=== PATIENT | male | born 1945 | race Caucasian/White ===

== ENCOUNTER → 2016-08-10 | Outpatient (CLI) | payer OTHER, MEDICARE ==
[~2016-08-10] VITALS: Ht 190.5 cm; Wt 138.4 kg
[~2016-08-10] MED LIST: ALIGN4 MG PO; ALLERGY10 M2 PO; ALPRAZOLAM 0.0.25 M1 PO; ALTACE5 M1 PO; ASPIRIN EC81 M1 PO; ASTELIN30 ML NS; ATENOLOL 25 MG25 M1 PO; AVODART PO; AVODART0.5 MG PO; CARAFATE 11 GM/10 M1 PO; CARAFATE1 GM/10 ML; CARAFATE1 GM/10 ML PO; COUMADIN 5 MG TA5 M1 PO; COUMADIN PO; COUMADIN7.5 MG PO; CRESTOR10 MG PO; DOMPERIDONE PO; E-MYCIN250 MG PO; EFFEXOR XR150 MG PO; ERYTHROMYCIN250 M1 PO; ERYTHROMYCIN250 MG PO; FLAGYL500 MG PO; FLONASE 0.05%50 MCG NASAL; FLONASE NS; FUROSEMIDE 20 M20 M1 PO; FUROSEMIDE 40 M40 MG PO; FUROSEMIDE 80 M80 M1 PO; JANTOVEN5 MG PO; KRILL OIL500 MG PO; LACTAID FAS9000 UNI1 PO; LACTASE 3000U T1 TA1 PO; LANOXIN 0.120.125 M1 PO; LEVEMIR SUBQ; LIDOCAINE VISC100 ML MM; LIPITOR20 MG PO; LOVENOX PO; MAALOX MAXIMUM355 ML PO; METRONIDAZOLE500 M4 PO; MIRALAX17 GM PO; NABUMETONE 750750 M1 PO; NEURONTIN300 MG PO; NOVOLOG100 UNIT/1; NOVOLOG100 UNIT/1 SUBQ; OMEGA-3 KRILL1 EACH PO; OMEPRAZOLE40 MG PO; ONDANSETRON HCL4 M2 PO; ONDANSETRON HCL4 M3 PO; POTASSIUM99 M1 PO; PRILOSEC 20 MG20 MG PO; PROBIOTIC1 EAC1 PO; PROBIOTIC1 EACH PO; STOOL SOFTENER250 MG PO; TOPROL XL100 MG PO; TRILIPIX135 MG PO; VICODIN 5-5001 EACH PO; VITAMIN D31000 UNI2 PO; XANAX 0.25 MG0.25 MG PO; XARELTO20 MG PO; XIFAXAN550 MG PO; ZANAFLEX4 M1 PO
--- NOTE | ~2016-08-10 | HPC ---
[facility] [place] [address] PAIN MANAGEMENT CONSULTATION Name: CARINECLARICE Eusebio Room #: REG [facility] [id number] Admission: 08/10/16 Attend Phys: Rudy Fontaine DO Discharge: Date of : 43 Report #: [id number] THIS REPORT FOR: //name// CC: Rudy Marrufo MD DATE OF SERVICE: 08/10/2016 Referring physician: William Marrufo MD CHIEF COMPLAINT: Low back pain, right lower extremity pain and paresthesias. HISTORY OF PRESENT ILLNESS: As you know, the patient is a 70-year-old male, returning in followup visit having discontinued his Coumadin therapy in preparation for the next in a series of epidural injections under fluoroscopic guidance. As you are aware, the patient suffers from chronic lumbar radiculopathy secondary to progressively worsening spinal stenosis. His spinal stenosis is multifactorial due to facet changes and disk bulging leading to central canal stenosis. He has returned today in preparation for an epidural injection under fluoroscopic guidance. He is placing his pain score today at 5/10, states pain is exacerbated with standing, walking, lifting, bending, improves with sitting and lying down. He indicates a 90% improvement in overall pain with previous epidural injection lasting nearly 3-1/2 months. He returns today in followup visit with an INR of 1.0 in preparation for today's procedure. ALLERGIES: No known drug allergies. CURRENT MEDICATIONS: See extensive list in chart. PHYSICAL EXAMINATION: VITAL SIGNS: Blood pressure 121/57, pulse 60, respiratory rate 20, unlabored. The patient is 96% on room air, height 6 feet 3 inches tall, weight 305.2 pounds, BMI calculated 38.1. GENERAL: Well developed, well nourished, well hydrated, morbidly obese 70-year-old male appearing stated age. He is placing pain score today 5/10. HEENT: Normocephalic, atraumatic. Pupils equal, round, reactive to light. EXTREMITIES: Show no clubbing, no cyanosis. There is 2+ nonpitting lower extremity venous stasis. MUSCULOSKELETAL: Seated straight leg raising negative. Supine straight leg raising mildly positive. KALEIGH test negative. Modified Gaenslen's positive for axial low back pain. Ankle clonus negative. Babinski is negative. ASSESSMENT: 1. Chronic lumbar radiculopathy. 2. Progressively worsening spinal stenosis of lumbar spine. [address] [address] PAIN MANAGEMENT CONSULTATION Name: CLARICE HAWK Eusebio [facility] [id number] Admission: 08/10/16 Attend Phys: Rudy Fontaine DO Discharge: Date of : 43 Report #: [id number] 3. Displacement of lumbar intervertebral disk with radiculopathy. 4. Lumbosacral spondylosis with radiculopathy. 5. Lumbar degeneration. 6. Chronic intractable pain. PLAN: 1. The patient returns today in followup visit having an INR of 1.0 after discontinuing his Coumadin therapy in preparation for an epidural injection under fluoroscopic guidance. The patient has been advised of the risks and benefits of this procedure, states he understood and wished to proceed. The patient does indicate that his previous epidural injection provided 90% improvement in overall pain lasting for nearly 3-1/2 months. He is hopeful to see similar improvement today. He has been advised risks and benefits, states he understood and did sign consent to undergo the procedure. 2. No medication changes were made at today's visit. The patient will restart his Coumadin starting today and then continue his normal dosing as prescribed by his PCP. 3. We will see the patient back in followup visit on an as needed basis. PROCEDURE NOTE: DESCRIPTION OF PROCEDURE: L4-L5 lumbar epidural steroid injection under fluoroscopic guidance. After obtaining written consent, the patient was taken back to fluoroscopy suite, placed in prone position with pillow under abdomen to decrease lumbar lordosis. Skin overlying lumbosacral area prepped and draped in aseptic fashion. The L4-L5 vertebral interspace identified by AP fluoroscopy. Skin and subcutaneous tissue overlying target site of injection was anesthetized with 3 mL of 1% lidocaine. A 20-gauge 4-1/2 inch Tuohy needle advanced under fluoroscopic guidance towards the epidural space using a right paramedian approach. Epidural space identified using loss of resistance to air technique. After negative aspiration for heme or cerebrospinal fluid, 1 mL of Omnipaque was injected. A lumbar epidurogram was confirmed using both AP and lateral fluoroscopy. After negative aspiration for heme or cerebrospinal fluid, 5 mL of a solution containing 2 mL 40 mg per mL, 80 mg total triamcinolone, 3 mL lidocaine 1% injected slowly. Needle retracted chcf, needle tract flushed 3 mL 1% lidocaine. Needle then removed. Sterile bandage placed over injection site. No new motor deficits present in the lower extremity following the procedure. The patient tolerated procedure well, carefully escorted to the recovery room in [facility] [address] [place] [address] PAIN MANAGEMENT CONSULTATION Name: CLARICE HAWK Room #: REG [facility] Jody#: [id number] Admission: 08/10/16 Attend Phys: Rudy Fontaine DO Discharge: Date of : 43 Report #: [id number] stable condition. No apparent complication. After meeting discharge criteria, the patient discharged home. By: [id number] Rudy Fontaine DO /nt
[2016-08-10 10:10] VITALS: BP 121/57
== END | disposition home or self-care (01) ==
LOC: PAIN 07:04
DX: M54.16 Radiculopathy, lumbar region (principal); M48.06 Spinal stenosis, lumbar region; M51.26 Other intervertebral disc displacement, lumbar region; M47.27 Other spondylosis with radiculopathy, lumbosacral region; M51.36 Other intervertebral disc degeneration, lumbar region; G89.29 Other chronic pain

== ENCOUNTER → 2016-10-12 | Outpatient (CLI) | payer OTHER, MEDICARE ==
[~2016-10-12] VITALS: Ht 190.5 cm; Wt 139.5 kg
--- NOTE | ~2016-10-12 | HPC ---
[facility] [address] [place] [address] PAIN MANAGEMENT CONSULTATION Name: CARINECLARICE Eusebio Room #: REG JAY Jody#: [id number] Admission: 10/12/16 Attend Phys: Rudy Fontaine DO Discharge: Date of : 43 Report #: [id number] THIS REPORT FOR: //name// CC: Dr. Casper Marrufo DATE OF SERVICE: 10/12/2016 REFERRING PHYSICIAN: DR. Shirley. CHIEF COMPLAINT: Low back and right lower extremity pain with paresthesias. HISTORY OF PRESENT ILLNESS: As you know, the patient is a 70-year-old male who has returned today in followup visit to undergo next in the series of epidural injections under fluoroscopic guidance. The patient has done very well with previous epidural injections, returning today with a pain level of 6/10, states his pain is aching and sharp in sensation, exacerbated with standing, walking, bending, lifting, improves with sitting, lying down and medications as well as epidural injections. His previous epidural injection provided 80% improvement in overall pain for nearly 2 months. He has discontinued his Coumadin in preparation for today's procedure, his INR today 1.0. He returns for this epidural injection in hopes of improving pain. ALLERGIES: No known drug allergies. CURRENT MEDICATIONS: See extensive list in chart. IMAGING: No new imaging available. PHYSICAL EXAMINATION: VITAL SIGNS: Blood pressure 127/75, pulse 72, respiratory rate 16 and unlabored, the patient is 93% on room air, height 6 feet 3 inches tall, weight 307 pounds, and BMI calculated 38.4. GENERAL: Well-developed, well-nourished, well-hydrated, exogenously obese 70-year-old male, appearing his stated age, he is placing current pain score at 6/10. HEENT: Normocephalic, atraumatic. Pupils are equal, round, and reactive to light. Extraocular muscles are intact. EXTREMITIES: Show no clubbing, no cyanosis, and no edema. There is venous stasis noted in the lower extremities bilaterally. MUSCULOSKELETAL: Seated straight leg raising negative. Supine straight leg raising remains mildly positive on the right. Fabere's test negative. Gait is antalgic favoring right lower extremity over left. He is using a cane for ambulation. [address] [address] PAIN MANAGEMENT CONSULTATION Name: CLARICE HAWK Eusebio Room #: [facility] [id number] Admission: 10/12/16 Attend Phys: Rudy Fontaine DO Discharge: Date of : 43 Report #: [id number] ASSESSMENT: 1. Symptomatic lumbar radiculopathy. 2. Progressively worsening spinal stenosis of the lumbar spine. 3. Displacement of lumbar intervertebral disk with radiculopathy. 4. Lumbosacral spondylosis with radiculopathy. 5. Lumbar degeneration. 6. Chronic intractable pain. PLAN: 1. The patient returns today in followup visit requesting to undergo epidural injection under fluoroscopic guidance. The patient has noted good benefit with previous epidural injections, most recent provided 80% improvement in overall pain lasting for nearly 2 months. He returns today requesting to undergo this epidural injection. He has discontinued his Coumadin in preparation for procedure, his INR today 1.0. He has been advised risks and benefits of this procedure, states he understood and did wish to proceed. 2. No medication changes were made at today's visit. The patient will restart his Coumadin today. He will continue the Coumadin as directed. 3. We will see the patient back in followup visit on an as needed basis for possible repeat epidural injection. PROCEDURE NOTE DESCRIPTION OF PROCEDURE: Lumbar epidural steroid injection under fluoroscopic guidance. After obtaining written consent, the patient was taken back to fluoroscopy suite, placed in prone position with pillow under abdomen to decrease lumbar lordosis. Skin overlying lumbosacral area was prepped and draped in aseptic fashion. Lumbar intervertebral spaces were identified by AP fluoroscopy. Skin and subcutaneous tissue overlying target site of injection was anesthetized with 3 mL of 1% lidocaine. A 20-gauge 3-1/2 inch Tuohy needle was advanced under fluoroscopic guidance towards the epidural space using a right paramedian approach. Epidural space was identified using loss of resistance to air technique. After negative aspiration for heme or cerebrospinal fluid, 1 mL of Omnipaque was injected. Lumbar epidurogram was confirmed using both AP and lateral fluoroscopy. After negative aspiration for heme or cerebrospinal fluid, 5 mL of a solution containing 2 mL 40 mg per mL, 80 mg total triamcinolone, 3 mL lidocaine 1% injected slowly. Needle retracted jail, needle tract flushed with 3 mL 1% lidocaine. Needle then removed. Sterile bandage placed over injection site. No new motor deficits present in the lower extremity following the procedure. The patient tolerated the procedure well, carefully escorted to the recovery [facility] [address] [place] [address] PAIN MANAGEMENT CONSULTATION Name: CLARICE HAWK Room #: REG JAY Jody#: [id number] Admission: 10/12/16 Attend Phys: Rudy Fontaine DO Discharge: Date of : 43 Report #: [id number] room in stable condition. No apparent complications. After meeting discharge criteria, the patient discharged home. By: [id number] Rudy Fontaine DO /nt
[2016-10-12 08:36] VITALS: BP 127/75
== END | disposition home or self-care (01) ==
LOC: PAIN 10-11 06:51
DX: M54.16 Radiculopathy, lumbar region (principal); M48.06 Spinal stenosis, lumbar region; M51.16 Intervertebral disc disorders with radiculopathy, lumbar region; M47.27 Other spondylosis with radiculopathy, lumbosacral region; G89.29 Other chronic pain; Z87.891 Personal history of nicotine dependence

== ENCOUNTER → 2016-12-06 | Outpatient (CLI) | payer OTHER, MEDICARE | LOC: ULTRA 12-05 08:45 | DX: G57.62 Lesion of plantar nerve, left lower limb (principal) ==

== ENCOUNTER → 2016-12-21 | Outpatient (CLI) | payer OTHER, MEDICARE ==
[~2016-12-21] VITALS: Ht 190.5 cm; Wt 142.1 kg
--- NOTE | ~2016-12-21 | HPC ---
[facility] [address] [place] [address] PAIN MANAGEMENT CONSULTATION Name: CLARICE HAWK Room #: REG [facility]#: [id number] Admission: 12/21/16 Attend Phys: Rudy Fontaine DO Discharge: Date of : 43 Report #: [id number] THIS REPORT FOR: //name// CC: Rudy Shirley MD DATE OF SERVICE: 12/21/2016 BLACREFERRING PHYSICIAN: Dr. Shirley. CHIEF COMPLAINT: Low back pain, right lower extremity pain and paresthesias. HISTORY OF PRESENT ILLNESS: As you know, the patient is a 70-year-old male who returns today in followup visit to undergo next in the series of epidural injections under fluoroscopic guidance. The patient is placing pain score 5-6/10, states the pain is exacerbated with standing, walking, bending, lifting, improves with sitting, lying down, medications and epidural injections. He has discontinued his warfarin in preparation for today's procedure. INR today 1.1. He has returned today requesting epidural injection to build on success of previous intervention. He reports 80% improvement in overall pain with previous injection. ALLERGIES: No known drug allergies. CURRENT MEDICATIONS: See extensive list in chart. IMAGING: No new imaging available. PHYSICAL EXAMINATION: VITAL SIGNS: Blood pressure 122/78, pulse 60, respiratory rate 14, unlabored. The patient is 97% on room air. Height 6 feet 3 inches tall, weight 313.2 pounds, BMI calculated 39.1. GENERAL: Well developed, well nourished, well-hydrated exogenously obese 70-year-old male appearing his stated age, placing current pain score at 6/10. HEENT: Normocephalic, atraumatic. Pupils equal, round, reactive to light. Extraocular muscles are intact. Speech is fluent. EXTREMITIES: Show no clubbing, no cyanosis. There is venous stasis in the lower extremities bilaterally, but this is improved from previous evaluations. MUSCULOSKELETAL: Seated straight leg raising negative. Supine straight leg raising positive right. Citlaly's test negative. Modified Gaenslen's positive for axial low back pain. ASSESSMENT: 1. Symptomatic lumbar radiculopathy. [address] [address] PAIN MANAGEMENT CONSULTATION Name: CARINECLARICE Eusebio Room #: REG [facility].#: [id number] Admission: 12/21/16 Attend Phys: Rudy Fontaine DO Discharge: Date of : 43 Report #: [id number] 2. Progressively worsening spinal stenosis of the lumbar spine. 3. Displacement of lumbar intervertebral disk with radiculopathy. 4. Lumbosacral spondylosis with radiculopathy. 5. Lumbar degeneration. 6. Chronic intractable pain. PLAN: 1. The patient returns today in followup visit requesting to undergo next in the series of epidural injections under fluoroscopic guidance. He has discontinued his Coumadin in preparation for today's procedure. His INR is 1.1 today. He has been advised of risks and benefits of the epidural injection, states he understood and wished to proceed. 2. No medication changes were made at today's visit, the patient to continue current medical therapy as previously prescribed. 3. The patient to return to our clinic on an as-needed basis for possible next in a series of epidural injections. PROCEDURE NOTE DESCRIPTION OF PROCEDURE: L4-L5 right paramedian epidural steroid injection under fluoroscopic guidance. After obtaining written consent, the patient was taken back to fluoroscopy suite, placed in prone position with pillow under abdomen to decrease lumbar lordosis. Skin overlying lumbosacral area prepped and draped in aseptic fashion. Lumbar intervertebral spaces were identified by AP fluoroscopy. Skin and subcutaneous tissue overlying target site of injection was anesthetized with 3 mL of 1% lidocaine. A 20-gauge 4-1/2 inch Tuohy needle was advanced under fluoroscopic guidance towards the epidural space using a right paramedian approach. Epidural space identified using loss of resistance to air technique. After negative aspiration for heme or cerebrospinal fluid, 1 mL of Omnipaque was injected. Lumbar epidurogram was confirmed using both AP and lateral fluoroscopy. After negative aspiration for heme or cerebrospinal fluid, 5 mL of a solution containing 2 mL 40 mg per mL, 80 mg total triamcinolone, 3 mL lidocaine 1% injected slowly. Needle retracted usp, needle tract flushed 3 mL 1% lidocaine. Needle then removed. Sterile bandage placed over injection site. No new motor deficits present in the lower extremity following procedure. The patient tolerated procedure well, carefully escorted to the recovery in [address] [address] PAIN MANAGEMENT CONSULTATION Name: CLARICE HAWK Room #: JITENDRA Vera#: [id number] Admission: 12/21/16 Attend Phys: Rudy Fontaine DO Discharge: Date of : 43 Report #: [id number] stable condition. No apparent complications. After meeting discharge criteria, the patient discharged home. By: 1110 1920 Rudy Fontaine DO /macho
[2016-12-21 09:43] VITALS: BP 122/78
== END | disposition home or self-care (01) ==
LOC: PAIN 07:08
DX: M51.16 Intervertebral disc disorders with radiculopathy, lumbar region (principal); M48.06 Spinal stenosis, lumbar region; M47.27 Other spondylosis with radiculopathy, lumbosacral region; G89.29 Other chronic pain; Z87.891 Personal history of nicotine dependence

== ENCOUNTER → 2017-02-15 | Outpatient (CLI) | payer OTHER, MEDICARE ==
[~2017-02-15] VITALS: Ht 190.5 cm; Wt 142.5 kg
[~2017-02-15] MED LIST changes: +FLOMAX0.4 MG PO
--- NOTE | ~2017-02-15 | HPC ---
[facility] [place] [address] PAIN MANAGEMENT CONSULTATION Name: CARINECLARICE Eusebio Room #: [facility] [id number] Admission: 02/15/17 Attend Phys: Rudy Fontaine DO Discharge: Date of : 43 Report #: [id number] THIS REPORT FOR: //name// CC: Rudy Shirley MD DATE OF SERVICE: 02/15/2017 DATE OF SERVICE: 02/15/2017 CHIEF COMPLAINT: Low back pain, right lower extremity pain and paresthesias. HISTORY OF PRESENT ILLNESS: As you know, the patient is a 71-year-old male who has been referred to our service for evaluation for lumbar radicular symptoms. He has undergone epidural injections with good efficacy. Most recent injection provided upwards of 75% improvement in overall pain lasting until just recently where he has slow and progressive return of symptoms, now he is placing pain score at 8/10. He has discontinued his Coumadin with an INR of 1.0 to undergo epidural injection today. He denies any changes in his medical history and denies any injuries or trauma that may have led to progression of pain. ALLERGIES: No known drug allergies. CURRENT MEDICATIONS: See the extensive list in chart. IMAGING: No new imaging available. PHYSICAL EXAMINATION: VITAL SIGNS: Blood pressure 141/69, pulse 64, respiratory rate 18, unlabored. The patient is 95% on room air, height 6 feet 3 inches tall, weight 314.2 pounds, BMI calculated 39.3. GENERAL: Well-developed, well-nourished, well-hydrated, class 2, morbidly obese 71-year-old male appearing stated age, placing current pain score at 8/10. HEENT: Normocephalic, atraumatic. Pupils equal, round, reactive to light. EXTREMITIES: Show no clubbing, no cyanosis, no edema. MUSCULOSKELETAL: Seated straight leg raising negative. Supine straight leg raising positive right. KALEIGH test negative. Modified Gaenslen's positive for axial low back pain. There is noted venous stasis in the lower extremities bilaterally. ASSESSMENT: 1. Symptomatic lumbar radiculopathy. 2. Progressively worsening spinal stenosis of the lumbar spine. 3. Displacement of lumbar intervertebral disk with radiculopathy. 4. Lumbosacral spondylosis with radiculopathy. [address] [address] PAIN MANAGEMENT CONSULTATION Name: CLARICE HAWK Room #: REG JAY Vera#: [id number] Admission: 02/15/17 Attend Phys: Rudy Fontaine DO Discharge: Date of : 43 Report #: [id number] 5. Lumbar degeneration. 6. Chronic intractable pain. PLAN: 1. The patient returns today in followup visit requesting to undergo epidural injection under fluoroscopic guidance. His INR today is 1.0. He has discontinued his Coumadin in preparation for today's procedure. The patient was advised risks and benefits of the procedure, states he understood and wished to proceed. 2. The patient is to continue current medical therapy as previously prescribed. No changes in medical therapy provided today. 3. The patient will restart his Coumadin today and continue on Coumadin until our next visit. He is to follow his INR and adjust his medication appropriately. PROCEDURE NOTE PROCEDURE: L5-S1 paramedian epidural steroid injection under fluoroscopic guidance. DESCRIPTION OF PROCEDURE: After obtaining written consent, the patient was taken back to fluoroscopy suite, placed in prone position with pillow under abdomen to decrease lumbar lordosis. Skin overlying lumbosacral area prepped and draped in aseptic fashion. Lumbar intervertebral spaces were identified by AP fluoroscopy. Skin and subcutaneous tissue overlying the target site of injection was anesthetized with 3 mL of 1% lidocaine. A 20-gauge 4-1/2 inch Tuohy needle advanced under fluoroscopic guidance towards the epidural space using paramedian approach. Epidural space identified using loss of resistance to air technique. After negative aspiration for heme or cerebrospinal fluid, 1 mL of Omnipaque was injected. A lumbar epidurogram was confirmed using both AP and lateral fluoroscopy. After negative aspiration for heme or cerebrospinal fluid, 5 mL of a solution containing 2 mL 40 mg per mL, 80 mg total triamcinolone, 3 mL lidocaine 1% injected slowly. Needle retracted senior care, needle tract flushed with 3 mL 1% lidocaine. Needle then removed. Sterile bandage placed over injection site. No new motor deficits present in lower extremity following the procedure. The patient tolerated procedure well, carefully escorted to the recovery in stable condition. No apparent complication. After meeting discharge criteria, the patient discharged home. By: [id number] Rudy Fontaine DO /nt
[2017-02-15 09:47] VITALS: BP 141/69
== END | disposition home or self-care (01) ==
LOC: PAIN 07:06
DX: M51.16 Intervertebral disc disorders with radiculopathy, lumbar region (principal); M48.061 Spinal stenosis, lumbar region without neurogenic claudication; M47.27 Other spondylosis with radiculopathy, lumbosacral region; G89.29 Other chronic pain; Z98.890 Other specified postprocedural states; Z79.01 Long term (current) use of anticoagulants; Z87.891 Personal history of nicotine dependence; Z95.810 Presence of automatic (implantable) cardiac defibrillator; Z79.82 Long term (current) use of aspirin; Z79.899 Other long term (current) drug therapy; Z79.4 Long term (current) use of insulin

== ENCOUNTER → 2017-07-18 | Outpatient (CLI) | payer OTHER, MEDICARE ==
[~2017-07-18] VITALS: Ht 195.6 cm; Wt 143.7 kg
[~2017-07-18] MED LIST changes: -ATENOLOL 25 MG25 M1 PO; +ATIVAN0.5 MG PO; +DEMADEX20 MG PO; -FUROSEMIDE 20 M20 M1 PO; +LASIX 40 MG TAB40 M2 PO; +SPIRONOLACTONE25 M1 PO; +TENORMIN50 MG PO; -XANAX 0.25 MG0.25 MG PO
--- NOTE | ~2017-07-18 | HPC ---
[facility] [place] [address] PAIN MANAGEMENT CONSULTATION Name: CLARICE HAWK Eusebio Room #: REG JAY HobbsYayo#: [id number] Admission: 07/18/17 Attend Phys: Rudy Fontaine DO Discharge: Date of : 43 Report #: [id number] THIS REPORT FOR: //name// CC: Rudy Shirley MD DATE OF SERVICE: 07/18/2017 CHIEF COMPLAINT: Low back pain, right lower extremity pain with paresthesias. HISTORY OF PRESENT ILLNESS: As you know, the patient is a 71-year-old male who returns today in followup visit with recurrent lumbar radiculopathy. The patient is now placing pain score at around 7/10. The patient states that pain is exacerbated with standing, walking; improves with medication, sitting and epidural injections. He reports an 80% improvement in overall pain with previous epidural injection. He returns today in followup visit requesting next in the series in hopes of improving pain. He has an INR today of 1.0 as he has discontinued his Coumadin. ALLERGIES: No known drug allergies. CURRENT MEDICATIONS: See extensive list in chart. IMAGING: No new imaging available. PQRS: The patient has known osteoarthritis. No rheumatoid arthritis. He indicates pain level 7/10. He is a fall risk. He has not had a fall in the past 3 months, but he does use a cane for ambulation. He is on anticoagulation in the form of warfarin, which was discontinued in preparation for today's procedure. He has treated for hypertension. He is not on chronic opioids. He is a moderate risk for opioid abuse. His functional assessment tool, 47/70 indicating severe interference of daily activities secondary to pain. PHYSICAL EXAMINATION: VITAL SIGNS: Blood pressure 108/63, pulse 68, respiratory rate 16, nonlabored. The patient is 96% on room air, height 6 feet 5 inches tall, weight 316.8 pounds, BMI calculated 37.6. GENERAL: Well-developed, well-nourished, well-hydrated exogenously obese 71-year-old male appearing stated age, placing current pain score 7/10. HEENT: Normocephalic, atraumatic. Pupils equal, round, reactive to light. Extraocular muscles are intact. Speech fluent. The patient deemed a good historian. EXTREMITIES: Show no clubbing, no cyanosis, no edema. MUSCULOSKELETAL: Seated straight leg raising negative. Supine straight leg [facility] [address] [place] [address] PAIN MANAGEMENT CONSULTATION Name: CLARICE HAWK Room #: REG [facility]#: [id number] Admission: 07/18/17 Attend Phys: Rudy Fontaine DO Discharge: Date of : 43 Report #: [id number] raising positive right. KALEIGH test negative. Modified Gaenslen's positive for axial low back pain. Ankle clonus negative. Babinski is negative. Noted venous stasis in lower extremities bilaterally, right greater than left. ASSESSMENT: 1. Symptomatic lumbar radiculopathy. 2. Spinal stenosis of lumbar spine. 3. Displacement of lumbar intervertebral disk with radiculopathy. 4. Lumbosacral spondylosis with radiculopathy. 5. Lumbar degeneration. 6. Chronic intractable pain. PLAN: 1. The patient returns today in followup visit requesting to undergo next in the series of epidural injections. He reports an 80% improvement in overall pain with previous epidural injection and unfortunately, he has had a slow and progressive return of symptoms. He is now placing pain score 7/10. He has been advised risks and benefits of a repeat epidural injection, states understood and wished to proceed. 2. No medication changes were made at today's visit. The patient to continue current medical therapy as previously prescribed. 3. We will see the patient back in followup visit on an as-needed basis for the next in a series of epidural injections. The patient is to restart his Coumadin tonight. Continue the Coumadin as directed. DESCRIPTION OF PROCEDURE: L5-S1 right paramedian epidural steroid injection under fluoroscopic guidance. After obtaining written consent, the patient was taken back to fluoroscopy suite, placed in prone position with pillow under abdomen to decrease lumbar lordosis. Skin overlying lumbosacral area then prepped and draped in aseptic fashion. Lumbar intervertebral spaces were identified by AP fluoroscopy. Skin and subcutaneous tissue overlying target site of injection was anesthetized with 3 mL of 1% lidocaine. A 20-gauge 4-inch Tuohy needle was advanced under fluoroscopic guidance towards the epidural space using a right paramedian approach. Epidural space identified using loss of resistance to air technique. After negative aspiration for heme or cerebrospinal fluid, 1 mL of Omnipaque was injected. A lumbar epidurogram was confirmed using both AP and lateral fluoroscopy. After negative aspiration for heme or cerebrospinal fluid, 5 mL of solution containing 2 mL 40 mg per mL, 80 mg total triamcinolone, 3 mL of lidocaine 1% injected slowly. Needle retracted long-term, flushed with 1 mL of 1% lidocaine and removed. Sterile bandage placed over injection site. No new motor deficits present in the lower extremity following procedure. [address] [address] PAIN MANAGEMENT CONSULTATION Name: CLARICE HAWK Room #: REG CLI RadhaKarey#: [id number] Admission: 07/18/17 Attend Phys: Rudy Fontaine DO Discharge: Date of : 43 Report #: [id number] The patient tolerated procedure well, carefully escorted to recovery room in stable condition. No apparent complications. After meeting discharge criteria, the patient discharged home. <ELECTRONICALLY SIGNED> By: Rudy Fontaine DO 07/26/17 0736 1547 1803 Rudy Fontaine DO /nt
[2017-07-18 09:16] VITALS: BP 108/63
== END | disposition home or self-care (01) ==
LOC: PAIN 06-20 08:42
DX: M51.16 Intervertebral disc disorders with radiculopathy, lumbar region (principal); M47.27 Other spondylosis with radiculopathy, lumbosacral region; M48.061 Spinal stenosis, lumbar region without neurogenic claudication; G89.29 Other chronic pain; Z79.01 Long term (current) use of anticoagulants

== ENCOUNTER → 2017-09-06 | Outpatient (CLI) | payer OTHER, MEDICARE ==
[~2017-09-06] VITALS: Ht 195.6 cm; Wt 143.6 kg
[~2017-09-06] MED LIST changes: +ATENOLOL 25 MG25 M1 PO; -ATIVAN0.5 MG PO; -DEMADEX20 MG PO; +FUROSEMIDE 20 M20 M1 PO; -LASIX 40 MG TAB40 M2 PO; -SPIRONOLACTONE25 M1 PO; -TENORMIN50 MG PO; +XANAX 0.25 MG0.25 MG PO
--- NOTE | ~2017-09-06 | HPC ---
[facility] [place] [address] PAIN MANAGEMENT CONSULTATION Name: CLARICE HAWK Eusebio Room #: REG [facility] Radha.#: [id number] Admission: 09/06/17 Attend Phys: Rudy Fontaine DO Discharge: Date of : 43 Report #: [id number] THIS REPORT FOR: //name// CC: Rudy Shirley MD DATE OF SERVICE: 09/06/2017 REFERRING PHYSICIAN: William Marrufo MD. CHIEF COMPLAINT: Low back pain, right lower extremity pain with paresthesias. HISTORY OF PRESENT ILLNESS: As you know, the patient is a pleasant, morbidly obese, 71-year-old male who returns today in followup visit for epidural injection. He is placing his pain score today 7/10. He reports improvement in symptoms with the epidural injection at last visit, but he did note more rapid return of symptoms. This is very concerning for progression of the patient's ongoing back issues. I am concerned of progressively worsening spinal stenosis as the source of the symptoms the patient is experiencing. He has returned requesting this epidural injection in hopes of improving pain. If this does not provide good long-term benefit, I would recommend further imaging and possible surgical consultation. The patient and I discussed this today. We will undergo the epidural injection in hopes of improving symptoms, but again if this is not effective, he is to discuss with his PCP or our clinic about further imaging studies. ALLERGIES: No known drug allergies. CURRENT MEDICATIONS: See extensive list in chart. IMAGING: No new imaging available. PQRS: The patient has known osteoarthritis. No rheumatoid arthritis. He is placing pain score at level of 7/10. He is a fall risk. He has not had a fall in the last 3 months, but he does have unsteady gait and uses a cane for ambulation. He is on anticoagulation in the form of warfarin, discontinued for today's procedure. He is treated for hypertension. He is not on chronic opioids. He is moderate risk for opioid abuse. Functional assessment tool indicates pain 47/70, indicating severe interference of daily activities secondary to pain. LABORATORY DATA: INR 1.0. PHYSICAL EXAMINATION: [facility] [address] [place] [address] PAIN MANAGEMENT CONSULTATION Name: CLARICE HAWK Room #: [facility]#: [id number] Admission: 09/06/17 Attend Phys: Rudy Fontaine DO Discharge: Date of : 43 Report #: [id number] VITAL SIGNS: Blood pressure 120/65, pulse 62, respiratory rate 16, unlabored. The patient is 97% on room air, height is 6 feet 5 inches tall, weight 316.6 pounds, BMI calculated 37.5. GENERAL: Well-developed, well-nourished, well-hydrated, exogenously obese 71-year-old male, appearing his stated age, placing current pain score 7/10. HEENT: Normocephalic, atraumatic. Pupils equal, round, reactive to light. Extraocular muscles are intact. EXTREMITIES: Show no clubbing, no cyanosis. There is significant right lower extremity edema and venous stasis noted bilaterally. ASSESSMENT: 1. Symptomatic lumbar radiculopathy. 2. Progressively worsening spinal stenosis of lumbar spine. 3. Displacement of lumbar intervertebral disk with radiculopathy. 4. Lumbosacral spondylosis with radiculopathy. 5. Lumbar degeneration. 6. Chronic intractable pain. PLAN: The patient returns today in followup visit requesting to undergo epidural injection under fluoroscopic guidance. He reports less efficacy with previous epidural injection than we have seen in the past. I am always concerned when we see this that the patient's pathology may have progressed. We have reviewed with the patient the imaging from the last 3 epidural injections showing him the fluoroscopic imaging where the position of the needle was nearly exactly the same at each injection. The fact that he is receiving less benefit with shots is quite concerning as patient's weight has not varied and thus I am concerned that there is possibility that the patient's weight in conjunction with age has progressed his spinal stenosis further to the point where epidural injections will be ineffective. I would recommend the patient at least trial one more epidural injection. If he notes no improvement with this injection, then I would recommend the patient move for further imaging and possible surgical option. The patient will discuss this with his PCP. He will also need to gain clearance from his licensing coordinator. 2. The patient was advised risks and benefits of a lumbar epidural injection. These risks include but are not necessarily limited to bleeding, bruising, infection, worsening pain, no relief of pain, also risk of temporary or permanent muscle weakness, temporary or permanent nerve damage, possible paralysis and . The patient states understood and wished to proceed. 3. No medication changes made at today's visit. The patient to continue current medical therapy. 4. We will see the patient back in followup visit on an as needed basis for next in a series of epidural injections. PROCEDURE NOTE PROCEDURE: L4-L5 right paramedian epidural steroid injection under fluoroscopic [address] [address] PAIN MANAGEMENT CONSULTATION Name: CLARICE HAWK Room #: REG Dora Garcia#: [id number] Admission: 09/06/17 Attend Phys: Rudy Fontaine DO Discharge: Date of : 43 Report #: [id number] guidance. DESCRIPTION OF PROCEDURE: After obtaining written consent, the patient was taken back to fluoroscopy suite, placed in prone position with pillow under abdomen to decrease lumbar lordosis. Skin overlying lumbosacral area was then prepped and draped in aseptic fashion. The L4-L5 vertebral interspace is identified by AP fluoroscopy. Skin and subcutaneous tissue overlying target site of injection was anesthetized with 3 mL of 1% lidocaine. A 20-gauge 4-1/2 inch Tuohy needle was advanced under fluoroscopic guidance towards the epidural space using a right paramedian approach. Epidural space identified using loss of resistance to air technique. After negative aspiration for heme or cerebrospinal fluid, 1 mL of Omnipaque was injected. Lumbar epidurogram was confirmed using both AP and lateral fluoroscopy. After negative aspiration for heme or cerebrospinal fluid, 5 mL of a solution containing 2 mL 40 mg per mL, 80 mg total triamcinolone, 3 mL lidocaine 1% injected slowly. Needle retracted fdc, flushed with 1 mL of 1% lidocaine and removed. Sterile bandage placed over injection site. No new motor deficits present in the lower extremity following procedure. The patient tolerated the procedure well, carefully escorted to recovery room in stable condition. No apparent complications. After meeting discharge criteria, the patient discharged home. <ELECTRONICALLY SIGNED> By: Rudy Fontaine DO 09/12/17 0811 1137 0020 Rudy Fontaine DO /nt
[2017-09-06 10:51] VITALS: BP 120/65
== END | disposition home or self-care (01) ==
LOC: PAIN 07:36
DX: M51.16 Intervertebral disc disorders with radiculopathy, lumbar region (principal); M48.061 Spinal stenosis, lumbar region without neurogenic claudication; M47.27 Other spondylosis with radiculopathy, lumbosacral region; G89.29 Other chronic pain; I10 Essential (primary) hypertension; Z79.891 Long term (current) use of opiate analgesic; Z79.01 Long term (current) use of anticoagulants; Z98.890 Other specified postprocedural states; Z79.82 Long term (current) use of aspirin; Z79.899 Other long term (current) drug therapy; Z79.4 Long term (current) use of insulin

== ENCOUNTER → 2018-02-21 | Outpatient (CLI) | payer OTHER, MEDICARE ==
[~2018-02-21] VITALS: Ht 195.6 cm; Wt 142.2 kg
[~2018-02-21] MED LIST changes: -ATENOLOL 25 MG25 M1 PO; +ATIVAN0.5 MG PO; +DEMADEX20 MG PO; -FUROSEMIDE 20 M20 M1 PO; +LASIX 40 MG TAB40 M2 PO; +SPIRONOLACTONE25 M1 PO; +TENORMIN50 MG PO; -XANAX 0.25 MG0.25 MG PO
--- NOTE | ~2018-02-21 | HPC ---
[facility] [address] [place] [address] PAIN MANAGEMENT CONSULTATION Name: CLARICE HAWK Room #: [facility] [id number] Admission: 02/21/18 Attend Phys: Rudy Fontaine DO Discharge: Date of : 43 Report #: [id number] THIS REPORT FOR: //name// CC: MICHEAL Saravia MD CHIEF COMPLAINT: Back pain. HISTORY OF PRESENT ILLNESS: As you know, the patient is a morbidly obese 72-year-old male who returns today in followup visit to undergo medial branch nerve blocks of the lumbar spine to determine if his symptoms will improve from axial back pain. The patient sought evaluation through Neurosurgery and advised to trial medial branch nerve blocks and possible radiofrequency lesion to determine if his symptoms will improve. He returns today with an INR of 1.1 to undergo first in the stage procedures of medial branch nerve blocks. ALLERGIES: No known drug allergies. CURRENT MEDICATIONS: See extensive list in chart. IMAGING: There is no new imaging available. PQRS: The patient has bilateral hip pain, bilateral knee pain, low back osteoarthritis. He has no rheumatoid arthritis. He is placing today's pain score at approximately 4/10. He is not a fall risk, but uses a cane for ambulation, has not had a fall in the last 3 months. He is treated with blood thinners in the form of Coumadin. He is treated for hypertension. He has not been on chronic opioids. He is at moderate risk for opioid abuse and addiction. Pain impact score is 47/70, severe. PHYSICAL EXAMINATION: VITAL SIGNS: Blood pressure 127/71, pulse is 65, respiratory rate 18 and unlabored. The patient is 95% on room air, height 6 feet 5 inches tall, weight 320 pounds, BMI calculated 37.9. GENERAL: Well-developed, well-nourished, well-hydrated, morbidly obese 72-year-old male, appears his stated age, placing current pain score 4-5/10. HEENT: Normocephalic, atraumatic. Pupils equal, round, reactive to light. EXTREMITIES: Show no clubbing, no cyanosis. MUSCULOSKELETAL: There is noted venous stasis changes in the lower extremities bilaterally. MUSCULOSKELETAL: Palpatory tenderness noted over the paraspinal musculature of lower lumbar spine, no spinous process tenderness. Seated straight leg raising negative. Supine straight leg raising positive. Citlaly's test negative. Modified Gaenslen's positive for axial low back pain. Ankle clonus negative. [address] [address] PAIN MANAGEMENT CONSULTATION Name: CLARICE HAWK Room #: REG [facility] [id number] Admission: 02/21/18 Attend Phys: Rudy Fontaine DO Discharge: Date of : 43 Report #: [id number] ASSESSMENT: 1. Chronic lumbar radiculopathy. 2. Progressively worsening spinal stenosis of lumbar spine. 3. Displacement of lumbar intervertebral disk with radiculopathy. 4. Facet arthropathy of the lumbar spine. 5. Lumbosacral spondylosis with radicular symptoms. 6. Lumbar degeneration. 7. Chronic intractable pain. PLAN: 1. The patient has returned today in followup visit, discontinued his Coumadin in preparation for medial branch nerve blocks to determine if his symptoms would improve from an axial back pain standpoint. The patient has been consented to undergo medial branch nerve block to address the L3, L4, L5 medial branch nerves in the lumbar spine bilaterally. He has been advised the risks and benefits, states he understood and wished to proceed. The patient will restart his Coumadin at typical dosing. He will discontinue the medication in preparation for next week's medial branch nerve blocks assuming this is an effective first testing. 2. The patient was provided a return visit in 1 week for possible second in the series of medial branch nerve blocks. PROCEDURE NOTE DESCRIPTION OF PROCEDURE: Bilateral L3, L4, L5 medial branch nerve blocks under fluoroscopic guidance. After obtaining written consent, the patient was taken back to fluoroscopy suite, placed in prone position with a pillow under abdomen to decrease lumbar lordosis. Skin overlying the lumbosacral area then prepped and draped in aseptic fashion. The L4 transverse process corresponding to the L3 medial branch nerve and the L5 transverse process corresponding to the L4 medial branch nerve was visualized under fluoroscopic guidance. Skin and subcutaneous tissue overlying the target site of injection was anesthetized with 2 mL of 1% lidocaine. A 22-gauge 3-1/2 inch spinal needle with bent tip was advanced towards the target site of injection under fluoroscopic guidance using a superior, inferior, lateral to medial approach to the dorsal superior and medial aspect of the transverse processes. The needles were then directed caudally to reach the target location. Oblique view facilitated needle placement with properly positioned needles within the middle of the "eye" of the Scottie dog at each site. At each site, needle rested on periosteum. After negative aspiration for heme or cerebrospinal fluid, 1 mL of bupivacaine 0.5% was injected at each site. We injected this slowly to avoid forcing the solution away from the target points. [place] were then removed. L5 dorsal ramus, both on the left and right side was performed using a slightly [facility] [address] [place] [address] PAIN MANAGEMENT CONSULTATION Name: CLARICE HAWK Room #: [facility]#: [id number] Admission: 02/21/18 Attend Phys: Rudy Fontaine DO Discharge: Date of : 43 Report #: [id number] oblique approach under fluoroscopic guidance, placing the needles within the groove between the sacral ala and the superior articular process of S1. Needle rested on periosteum. After negative aspiration for heme, 1 mL of bupivacaine 0.5% was injected at each site. [place] were retracted mcfp, flushed with 1 mL of 1% lidocaine and removed. Sterile bandage placed over injection site. The patient tolerated the procedure well, carefully escorted to Recovery Room in stable condition. No apparent complication. VAS before procedure rated at 4-5/10, VAS 10 minutes after procedure rated at 2/10. <ELECTRONICALLY SIGNED> By: Rudy Fontaine DO 02/28/18 0908 0925 2237 Rudy Fontaine DO /nt
[2018-02-21 10:56] VITALS: BP 182/81
== END | disposition home or self-care (01) ==
LOC: PAIN 07:04
DX: M47.817 Spondylosis without myelopathy or radiculopathy, lumbosacral region (principal); M51.16 Intervertebral disc disorders with radiculopathy, lumbar region; M51.36 Other intervertebral disc degeneration, lumbar region; M48.061 Spinal stenosis, lumbar region without neurogenic claudication; M46.96 Unspecified inflammatory spondylopathy, lumbar region; G89.29 Other chronic pain; M19.90 Unspecified osteoarthritis, unspecified site; I10 Essential (primary) hypertension; F17.210 Nicotine dependence, cigarettes, uncomplicated; Z79.01 Long term (current) use of anticoagulants; Z79.891 Long term (current) use of opiate analgesic; Z79.82 Long term (current) use of aspirin; Z79.899 Other long term (current) drug therapy; Z98.890 Other specified postprocedural states

== ENCOUNTER → 2018-02-28 | Outpatient (CLI) | payer OTHER, MEDICARE ==
[~2018-02-28] VITALS: Ht 190.5 cm; Wt 141.9 kg
--- NOTE | ~2018-02-28 | HPC ---
[address] [address] PAIN MANAGEMENT CONSULTATION Name: CLARICE HAWK [facility] [id number] Admission: 02/28/18 Attend Phys: Rudy Fontaine DO Discharge: Date of : 43 Report #: [id number] THIS REPORT FOR: //name// CC: Rudy Shirley MD DATE OF SERVICE: 02/28/2018 REFERRING PHYSICIAN: Juan M Shirley M.D. CHIEF COMPLAINT: Axial back pain. HISTORY OF PRESENT ILLNESS: As you know, the patient is a 72-year-old class 3, morbidly obese male who returns today in followup visit indicating approximately 75% improvement in overall pain from the axial back pain standpoint with medial branch nerve blocks provided at last visit, this lasted approximately 2 hours. He returns today in followup visit to undergo the next in the series of medial branch nerve blocks. If these are successful at alleviating greater than 75% improvement in overall pain for a specific amount of time, we would then look forward to having the patient undergo radiofrequency lesioning of the medial branch nerves addressing the L4-L5 and L5-S1 facet joints, specifically. He returns for the second in the series of injections. ALLERGIES: No known drug allergies. CURRENT MEDICATIONS: See the extensive list in chart. SOCIAL HISTORY: The patient denies tobacco, alcohol, IV or illicit drug use. He is retired, unaccompanied today. IMAGING DATA: No new imaging available. PQRS: The patient has bilateral hip osteoarthritis, bilateral knee osteoarthritis and low back osteoarthritis. No rheumatoid arthritis. He is placing pain intensity today and at 8/10. He is not a fall risk and has not had a fall in the last 3 months. He does use a cane for ambulation. He is on a blood thinner in the form of warfarin, which he has stopped in preparation for today's procedure. He is treated for hypertension. He is not on chronic opioids. He does have moderate risk of opioid addiction. His pain impact functional pain tool indicates pain score 47/70, which is moderate to severe interference of daily activities secondary to pain. PHYSICAL EXAMINATION: VITAL SIGNS: Blood pressure 132/69, pulse 64 and respiratory rate 16, [address] [address] PAIN MANAGEMENT CONSULTATION Name: CLARICE HAWK Eusebio Room #: [facility]#: [id number] Admission: 02/28/18 Attend Phys: Rudy Fontaine DO Discharge: Date of : 43 Report #: [id number] unlabored. The patient is 93% on room air, height 6 feet 3 inches tall, weight 312.8 pounds and BMI calculated 39.1. GENERAL: Well-developed, well-nourished, well-hydrated, morbidly obese 72-year-old male appearing stated age, placing current pain score at 8/10. HEENT: Normocephalic and atraumatic. Pupils equal, round and reactive to light. Extraocular muscles are intact. EXTREMITIES: Show no clubbing, no cyanosis and no edema. MUSCULOSKELETAL: There is noted venous stasis in the lower extremities bilaterally. Palpatory tenderness over the paraspinal musculature of lower lumbar spine, no spinous process tenderness. Seated straight leg raising negative. Supine straight leg raising positive. Citlaly's test negative. Modified Gaenslen's positive for axial low back pain. ASSESSMENT: 1. Chronic lumbar radiculopathy. 2. Progressively worsening spinal stenosis of the lumbar spine. 3. Displacement of the lumbar intervertebral disk with radiculopathy. 4. Lumbosacral spondylosis with radiculopathy. 5. Facet arthropathy of the lumbar spine. 6. Lumbar degeneration. 7. Chronic intractable pain. PLAN: 1. The patient returns today in followup visit noting a 75% improvement in overall pain with the medial branch nerve blocks provided at last visit, this lasted for approximately 2-2.5 hours. He returns today in followup visit to undergo the second in the stage procedure of medial branch blocks. If this is effective, then move forward with radiofrequency lesioning of the L3, L4, L5 medial branch nerves bilaterally. The patient has been advised the risks and benefits of repeating 5 bilateral L3, L4 and L5 medial branch block today. He states understood and wishes to proceed. 2. No medication changes made at today's visit. The patient will continue current medical therapy as previously prescribed. 3. The patient will contact our clinic once his pain has returned to his baseline level. If it is determined that he is a candidate to move forward with radiofrequency lesioning, we will establish an appointment next week to undergo the procedure. PROCEDURE NOTE DESCRIPTION OF PROCEDURE: Bilateral L3, L4 and L5 medial branch blocks under fluoroscopic guidance. This is the second of 2 diagnostic medial branch blocks on the bilateral side that the patient is undergoing. [address] [address] PAIN MANAGEMENT CONSULTATION Name: CLARICE HAWK Room #: J[facility]ENDRA Vera#: [id number] Admission: 02/28/18 Attend Phys: Rudy HansonKarey Zhen, DO Discharge: Date of : 43 Report #: [id number] After obtaining written consent, the patient was taken back to the fluoroscopy suite and placed in a prone position on the fluoroscopy table with a pillow under the abdomen to decrease the lumbar lordosis. The skin overlying the lumbosacral area was prepped and draped in an aseptic fashion. The L4 transverse process corresponding to the L3 medial branch nerve and L5 transverse process corresponding to the L4 medial branch nerve on the right and left sides were visualized under AP fluoroscopy. The skin and subcutaneous tissue overlying the target sites of injection were anesthetized using 2 mL of 1% lidocaine. A 22-gauge 3.5-inch spinal needle with a bent tip was advanced under fluoroscopic guidance using a superior to inferior and lateral to medial approach to the dorsal, superior and medial aspect of the base of the transverse processes. The needles were then directed ventral, medial and caudad to reach the target locations. An oblique view facilitated needle placement with properly positioned needless in the middle of the "eye" of the Tre dog for the medial branch blocks. At each site the needles rested on periosteum. After negative aspiration for heme or CSF, 0.5 mL of Omnipaque dye was injected at each site under live fluoroscopy, demonstrating absence of vascular uptake. After negative aspiration for heme or CSF, 1 mL of lidocaine 1.5% with 1:200,000 epinephrine was slowly injected at each site to avoid forcing the solution away from the target points. The needles were then removed. The L5 dorsal ramus block on the right and left side was performed using a slightly oblique approach under fluoroscopic guidance, placing the needle within the groove between the sacral site and the superior articular process of S1. The needle rested on periosteum. After negative aspiration for heme or CSF, 0.5 mL of Omnipaque dye was injected at under live fluoroscopy, demonstrating absence of vascular uptake. After negative aspiration for heme or CSF, 1 mL of lidocaine 1.5% with 1:200,000 epinephrine was slowly injected to avoid forcing the solution away from the target point. The needle was then removed. Sterile bandages were placed over the injection site. There were no complications. The patient tolerated the procedure well and was carefully escorted to the recovery room in stable condition. The VAS was 8/10 before the procedure and 2/10, 10 minutes after the procedure. After meeting discharge criteria, the patient was discharged home. <ELECTRONICALLY SIGNED> By: Rudy Fontaine DO 03/02/18 [id number] Rudy Fontaine DO /nt
[2018-02-28 12:47] VITALS: BP 132/69
== END | disposition home or self-care (01) ==
LOC: PAIN 06:53
DX: M51.16 Intervertebral disc disorders with radiculopathy, lumbar region (principal); M48.061 Spinal stenosis, lumbar region without neurogenic claudication; M47.27 Other spondylosis with radiculopathy, lumbosacral region; M46.96 Unspecified inflammatory spondylopathy, lumbar region; G89.29 Other chronic pain; I10 Essential (primary) hypertension; M19.90 Unspecified osteoarthritis, unspecified site; F17.210 Nicotine dependence, cigarettes, uncomplicated; Z79.01 Long term (current) use of anticoagulants; Z79.899 Other long term (current) drug therapy; Z98.890 Other specified postprocedural states

== ENCOUNTER → 2018-03-07 | Outpatient (CLI) | payer OTHER, MEDICARE ==
[~2018-03-07] VITALS: Ht 190.5 cm; Wt 141.5 kg
--- NOTE | ~2018-03-07 | HPC ---
[address] [address] PAIN MANAGEMENT CONSULTATION Name: CARINECLARICE C [facility] [id number] Admission: 03/07/18 Attend Phys: Rudy Fontaine DO Discharge: Date of : 43 Report #: [id number] THIS REPORT FOR: //name// CC: Rudy Shirley MD DATE OF SERVICE: 03/07/2018 REFERRING PHYSICIAN: Juan M Shirley M.D. CHIEF COMPLAINT: Axial back pain. HISTORY OF PRESENT ILLNESS: As you know, the patient is a 72-year-old class 3, morbidly obese male who returns today in followup visit to undergo radiofrequency lesioning of the right L3, L4 and L5 medial branch nerves. He has successfully completed 2 medial branch block sessions, both of which provided improvement in symptoms that was noted to be transient in nature, typical for medial branch nerve blocks. He returns reporting upwards of 60% improvement in overall pain with this last medial branch nerve block in preparation for the right L3, L4 and L5 radiofrequency lesion today. He has been advised of the risks and benefits and returns to undergo the procedure. ALLERGIES: No known drug allergies. CURRENT MEDICATIONS: See extensive list in chart. SOCIAL HISTORY: The patient denies tobacco, alcohol or IV or illicit drug use. He is retired, retired years ago. He is accompanied by his , present in room today. IMAGING DATA: No new imaging available. PQRS: The patient has bilateral hip osteoarthritis, bilateral knee osteoarthritis and low back OA. No rheumatoid arthritis. He is placing pain intensity today at approximately 4/10. He is a fall risk but has not had a fall in the last 3 months. He does use a cane for ambulation. He is on blood thinner but has discontinued the medication in preparation for today's procedure. He is treated for hypertension. He is not on opioids. He is a moderate risk for opioid addiction. Pain assessment shows 47/70, iopsyecb-xe-wzhrae interference of daily activities secondary to pain. PHYSICAL EXAMINATION: VITAL SIGNS: Blood pressure 122/70, pulse 64 and respiratory rate 16 and unlabored. The patient is 96% on room air. Height 6 feet 3 inches tall, weight [facility] [address] [place] [address] PAIN MANAGEMENT CONSULTATION Name: CLARICE HAWK Room #: [facility]#: [id number] Admission: 03/07/18 Attend Phys: Rudy Fontaine DO Discharge: Date of : 43 Report #: [id number] 312 pounds and BMI calculated 39.0. GENERAL: Well-developed, well-nourished, well-hydrated, class 2, morbidly obese male, appearing stated age, placing current pain score at 4/10. HEENT: Normocephalic and atraumatic. Pupils equal, round and reactive to light. EXTREMITIES: Show no clubbing, no cyanosis and no edema. MUSCULOSKELETAL: Palpatory tenderness noted over the paraspinal musculature of the lower lumbar spine and no spinous process tenderness. Seated straight leg raising negative. Supine straight leg raising positive. Citlaly's test negative. Modified Gaenslen's positive for axial low back pain. Ankle clonus negative. Babinski is negative. There is noted venous stasis changes in the lower extremities equally and bilaterally. ASSESSMENT: 1. Chronic lumbar radiculopathy. 2. Progressively worsening spinal stenosis of the lumbar spine. 3. Displacement of lumbar intervertebral disk with radiculopathy. 4. Facet arthropathy of the lumbar spine. 5. Lumbar degeneration. 6. Chronic intractable pain. PLAN: 1. The patient returns today in followup visit indicating improvement of about 60% with the medial branch nerve blocks provided at last visit. He returns to begin radiofrequency lesioning of the right L3, L4 and L5 medial branch nerves. The patient has been advised of the risks and the benefits of this procedure. These risks include but are not necessarily limited to bleeding, bruising, infection, worsening pain, no relief of pain, also risk of temporary or permanent muscle weakness, inadvertent nerve damage, possible paralysis and . The patient states understood and wished to proceed. 2. No medication changes made at today's visit. The patient will continue current medical therapy as previously prescribed. 3. We will see the patient back in followup visit in 2 weeks. At that time, we will discuss the efficacy of today's radiofrequency lesioning on the right side to determine if radiofrequency lesioning should be performed on the left. PROCEDURE NOTE DESCRIPTION OF PROCEDURE: Right L3, L4 and L5 radiofrequency lesioning of the medial branch nerves. The procedure was explained. Informed consent was obtained from the patient. The patient was informed of the risks of procedure, which include infection, bleeding, nerve damage, failure to produce pain relief and postoperative discomfort lasting for several weeks. [address] [address] PAIN MANAGEMENT CONSULTATION Name: CLARICE HAWK Room #: REG [facility] Vera#: [id number] Admission: 03/07/18 Attend Phys: Rudy Fontaine, Discharge: Date of : 43 Report #: [id number] The patient was then taken to the fluoroscopy suite, placed in prone position with pillow under abdomen to decrease lumbar lordosis. Skin overlying lumbosacral area then prepped and draped in aseptic fashion. AP imaging of the lumbar spine was used to identify the L2 through L5 vertebral bodies and the sacral ala. The target location on the right side of the L4 transverse process corresponding to the L3 medial branch nerve, the L5 transverse process corresponding to the L4 medial branch nerve were established. Using a 27-gauge, 1-1/4 inch needle, skin wheals were placed at the junction of the transverse process and the respective superior articular process using 1 mL of 1% lidocaine. We were careful to only anesthetize skin and not the deep tissue. The radiofrequency needles were then advanced under fluoroscopic guidance using a superior to inferior, lateral to medial approach to the dorsal superior and medial aspect of the base of the transverse processes. [place] were then directed caudally to reach the target locations. An oblique view facilitated needle placement with properly positioned needles within the middle of the "eye" of the Tre dog. At each site, needles rested on periosteum. Touching bone initially assured the needles were not placed too deeply. Radiofrequency lesioning of the L5 medial branch nerve on the right side was performed using a superior to inferior, lateral to medial approach under fluoroscopic guidance, placing the needle within the groove between the sacral ala and the superior articular process of S1. Needle rested on periosteum. Stimulation was performed at each level once the cannulas were in position. Sensory stimulation was performed at 0.3, 0.6 and 0.4 with good impedance of 209, 214, 226 at 50 Hz for the L3, L4 and L5 medial branch nerves respectively. Good stimulation of the lumbar buttock region was elicited indicating correct alignment with the posterior primary ramus. Absence of lower motor fasciculation was noted at 3 volts 2 Hz stimulation during the testing at the L3, L4 and L5 medial branch nerves respectively. Following this, affirmation of dissociation between sensory and motor stimulation, negative aspiration was noted both for heme and cerebrospinal fluid at each level. Next, 1 mL bupivacaine 0.5% was injected. After a 90-second delay, radiofrequency lesioning was performed at 80 degrees Celsius for 90 seconds. After the needles had cooled to 45 degree Celsius, 1 mL of a solution containing 1 mL 40 mg per mL, 40 mg total triamcinolone and 2 mL of bupivacaine 0.5% was injected at each site. Mission were retracted mcc, flushed with 1 mL of bupivacaine 0.5% and removed. The patient tolerated procedure well. Sterile bandages were placed over each of the injection sites. The patient was noted to be able to purposely move the lower extremities after the procedure. The patient tolerated procedure well, carefully escorted [place] [address] PAIN MANAGEMENT CONSULTATION Name: CARINECLARICE Eusebio [facility] #: [facility] [id number] Admission: 03/07/18 Attend Phys: Rudy Fontaine DO Discharge: Date of : 43 Report #: [id number] stable condition. No apparent complication. After meeting discharge criteria, the patient discharged home. By: 6 1139 Rudy Fontaine DO /macho
[2018-03-07 11:03] VITALS: BP 122/70
== END | disposition home or self-care (01) ==
LOC: PAIN 07:16
DX: M51.16 Intervertebral disc disorders with radiculopathy, lumbar region (principal); M48.061 Spinal stenosis, lumbar region without neurogenic claudication; M12.88 Other specific arthropathies, not elsewhere classified, other specified site; G89.29 Other chronic pain; E66.01 Morbid (severe) obesity due to excess calories; Z98.890 Other specified postprocedural states; Z68.39 Body mass index [BMI] 39.0-39.9, adult; Z95.810 Presence of automatic (implantable) cardiac defibrillator; Z79.899 Other long term (current) drug therapy; Z79.82 Long term (current) use of aspirin; Z79.4 Long term (current) use of insulin; Z79.01 Long term (current) use of anticoagulants

== ENCOUNTER → 2018-03-21 | Outpatient (CLI) | payer OTHER, MEDICARE ==
[~2018-03-21] VITALS: Ht 190.5 cm; Wt 141.5 kg
--- NOTE | ~2018-03-21 | HPC ---
[facility] [place] [address] PAIN MANAGEMENT CONSULTATION Name: CLARICE HAWK Room #: REG [facility] Radha.#: [id number] Admission: 03/21/18 Attend Phys: Rudy Fontaine DO Discharge: Date of : 43 Report #: [id number] THIS REPORT FOR: //name// CC: Rudy Shirley MD DATE OF SERVICE: 03/21/2018 REFERRING PHYSICIAN: Juan M Shirley MD CHIEF COMPLAINT: Axial back pain. HISTORY OF PRESENT ILLNESS: As you know, the patient is a 72-year-old class 3, morbidly obese male who returns today in followup visit to complete radiofrequency lesioning of the medial branch nerves of the lumbar spine. He successfully completed right L3, L4, L5 medial branch radiofrequency lesioning at our visit of 03/07/2018. He returns today reporting pain score of about 5-6/10 involving mainly the left side. He returns to undergo left L3, L4, L5 radiofrequency lesioning to complete the lesioning process. He has stopped his anticoagulant in preparation for today's procedure. His INR is 1.1. ALLERGIES: No known drug allergies. CURRENT MEDICATIONS: See extensive list in chart. SOCIAL HISTORY: The patient denies tobacco, alcohol, IV or illicit drug use. He is retired, retired years ago. He is accompanied by his who is present in room today. IMAGING: There is no new imaging available. PQRS: The patient has bilateral hip osteoarthritis, bilateral knee osteoarthritis and low back osteoarthritis. No rheumatoid arthritis. He is placing current pain score at 5-6/10. He is a fall risk, but has not had a fall in the last 3 months. He does use a cane for ambulation. He is on blood thinner, but discontinued the medication in preparation for the procedure to be performed today. He is treated for hypertension. He is not on opioids. He is at a moderate risk for opioid addiction. Pain impact score indicates 47/70, moderate to severe interference in daily activities secondary to pain. PHYSICAL EXAMINATION: VITAL SIGNS: Blood pressure 144/90, pulse 64, respiratory rate 18 and unlabored. The patient is 96% on room air, height 6 feet 3 inches tall, weight 312 pounds, BMI calculated at 39.0. GENERAL: Well-developed, well-nourished, well-hydrated, morbidly obese [address] [address] PAIN MANAGEMENT CONSULTATION Name: CLARICE HAWK Eusebio Room #: REG [facility] Vera#: [id number] Admission: 03/21/18 Attend Phys: Rudy Fontaine DO Discharge: Date of : 44 Report #: [id number] 72-year-old male, appearing stated age. Pain is rated at around 5-6/10. HEENT: Normocephalic, atraumatic. Pupils equal, round, reactive to light. EXTREMITIES: Show no clubbing, no cyanosis, no edema. MUSCULOSKELETAL: There remains palpatory tenderness over the paraspinal musculature on the left, negative right. Seated straight leg raising negative. Supine straight leg raising remains positive. Citlaly's test negative. Modified Gaenslen's positive for axial back pain. ASSESSMENT: 1. Facet arthropathy of the lumbar spine. 2. Lumbosacral spondylosis with radiculopathy. 3. Displacement of lumbar intervertebral disk with radiculopathy. 4. Progressively worsening spinal stenosis of lumbar spine. 5. Chronic lumbar radiculopathy. 6. Lumbar degeneration. 7. Chronic intractable pain. PLAN: 1. The patient has returned today in followup visit to complete the radiofrequency process of the medial branch nerves of the lumbar spine. We successfully completed with good efficacy, the right L3, L4, L5 radiofrequency lesioning at our last visit. He returns today in followup visit to complete the left L3, L4, L5 radiofrequency lesioning of the medial branch nerves of the lumbar spine today. He has been advised the risks and benefits of the procedure, states he understood and wished to proceed. 2. No medication changes made at today's visit. The patient will continue current medical therapy as previously prescribed. 3. We will see the patient back in followup visit on an as needed basis. PROCEDURE NOTE DESCRIPTION OF PROCEDURE: Left L3, L4, L5 radiofrequency lesioning of the medial branch nerves of the lumbar spine. The procedure was explained. The informed consent was obtained from the patient. The patient was informed of the risks of the procedure including infection, bleeding, nerve damage, failure to produce pain relief and postoperative discomfort lasting for several weeks. The patient was then taken to the fluoroscopy suite, placed in prone position with pillow under abdomen to decrease lumbar lordosis. Skin overlying the lumbosacral area then prepped and draped in aseptic fashion. AP imaging of the lumbar spine was used to identify the L2 through L5 vertebral processes and the sacral ala. Target location of the left side of the L4 transverse process corresponding to the L3 medial branch nerve and the L5 transverse process corresponding to the L4 medial branch nerve were established. Using a 27-gauge [address] [address] PAIN MANAGEMENT CONSULTATION Name: CLARICE HAWK Room #: REG [facility]#: [id number] Admission: 03/21/18 Attend Phys: Rudy MargieKarey Fontaine DO Discharge: Date of : 43 Report #: [id number] 1-1/4 inch needle, skin wheals were placed at the junction of the transverse processes and the respective superior articular process using 1 mL of 1% lidocaine. We were careful to only anesthetize skin and not the deep tissue. Radiofrequency needles were then advanced under fluoroscopic guidance using a superior to inferior, lateral to medial approach to the dorsal superior and medial aspect of the base of transverse processes. [place] were then directed caudally to reach the target locations. An oblique view facilitated needle placement with properly positioned needles within the middle of the eye of the Tre dog. At each site, needles rested on periosteum. Touching bone initially assured the needles were not placed too deeply. Radiofrequency lesioning of the L5 medial branch nerve on the left side was performed using a superior to inferior, lateral to medial approach under fluoroscopic guidance, placing the needle within the groove between the sacral ala and the superior articular process of S1. Needle rested on periosteum. Stimulation was performed at each level once the cannulas were in position. Sensory stimulation was performed at 0.4, 0.4 and 0.4 with good impedance of 260, 186 and 233 at 50 Hz for the L3, L4, L5 medial branch nerves respectively. Good stimulation of the lumbar and buttock region was elicited indicating correct alignment with the posterior primary ramus. Absence of lower motor fasciculation was noted at 3 volts 2 Hz stimulation during the testing of the L3, L4, L5 medial branch nerves respectively. Following this affirmation of dissociation between sensory and motor stimulation, negative aspiration noted for heme or cerebrospinal fluid at each level. Next, 1 mL of bupivacaine 0.5% was injected. After a 90-second delay, radiofrequency lesioning was performed at 80 degrees Celsius for 90 seconds. After the needles cooled to 45 degree Celsius, 1 mL of a solution containing 1 mL 40 mg per mL, 40 mg total triamcinolone and 2 mL of bupivacaine 0.5% was injected at each site, needles were retracted approximately half way, flushed with 1 mL bupivacaine 0.5% and removed. Sterile bandages were placed over injection site. The patient tolerated the procedure well, carefully escorted to the recovery room in stable condition. The patient was able to move lower extremities after procedure purposefully. The patient tolerated the procedure well, carefully escorted to the recovery room in stable condition. No apparent complications. After meeting discharge criteria, the patient was discharged home. <ELECTRONICALLY SIGNED> By: Rudy Fontaine DO 03/28/18 [id number] Rudy Fontaine DO /nt
[2018-03-21 09:12] VITALS: BP 144/90
== END ==
LOC: PAIN 06:34
DX: M47.27 Other spondylosis with radiculopathy, lumbosacral region (principal); M51.16 Intervertebral disc disorders with radiculopathy, lumbar region; M12.88 Other specific arthropathies, not elsewhere classified, other specified site; M48.061 Spinal stenosis, lumbar region without neurogenic claudication; G89.29 Other chronic pain; I10 Essential (primary) hypertension; E66.01 Morbid (severe) obesity due to excess calories; Z68.39 Body mass index [BMI] 39.0-39.9, adult; Z79.82 Long term (current) use of aspirin; Z79.899 Other long term (current) drug therapy; Z79.4 Long term (current) use of insulin; Z79.01 Long term (current) use of anticoagulants; Z87.891 Personal history of nicotine dependence

== ENCOUNTER → 2018-06-13 | Outpatient (CLI) | payer OTHER, MEDICARE ==
[~2018-06-13] VITALS: Ht 190.5 cm; Wt 142.4 kg
--- NOTE | ~2018-06-13 | HPC ---
[address] [address] PAIN MANAGEMENT CONSULTATION Name: HAWKCLARICE Room #: REG Dora Vera#: [id number] Admission: 06/13/18 Attend Phys: Rudy Fontaine DO Discharge: Date of : 43 Report #: [id number] THIS REPORT FOR: //name// CC: Rudy Shirley MD DATE OF SERVICE: 06/13/2018 CHIEF COMPLAINT: Right knee pain, chronic axial back pain. HISTORY OF PRESENT ILLNESS: As you know, the patient is a 72-year-old class 3 morbidly obese male who returns today in followup visit with continued axial back pain, but is also experiencing right knee pain, requesting a right intraarticular knee injection under fluoroscopic guidance. The patient apparently has been receiving these injections periodically through his orthopedic surgery team but states that at the last visit, he did not feel he was being treated appropriately. He is switched his care to our services for this right knee pain. He has requested an intraarticular knee injection today to address his ongoing pain. At present, he has medications available, does not need refills of his therapy. Review of his K-TRACS and MO-TRACS shows appropriate refills of his medications provided through our clinic. He returns today in followup visit requesting a right intraarticular knee injection under fluoroscopic guidance. ALLERGIES: No known drug allergies. CURRENT MEDICATIONS: Aspirin, venlafaxine, insulin, lorazepam, atenolol, Align, MiraLax, Astelin, Avodart, fluticasone, cholecalciferol, lovastatin, warfarin, omeprazole, Lactobacillus, Demadex, spironolactone. SOCIAL HISTORY: The patient denies tobacco, alcohol, IV or illicit drug use. He is retired, retired years ago. He is accompanied by his , present in room today. IMAGING: No new imaging available. PQRS: The patient has known bilateral hip osteoarthritis, bilateral knee osteoarthritis and low lumbar spine osteoarthritis. No rheumatoid arthritis diagnosis. He is placing a pain score today 5/10. He is found to be not a fall risk. He has not had a fall in the last 3 months. He does use a cane periodically for ambulation. He is on blood thinners in the form of warfarin and has continued the medication today. He is treated for hypertension. He is not on chronic opioids with our services and does have a moderate risk of opioid addiction. He is placing a pain impact score of 47/70 indicating moderate to severe interference of daily activities secondary to pain. [address] [address] PAIN MANAGEMENT CONSULTATION Name: CLARICE HAWK Room #: [facility]#: [id number] Admission: 06/13/18 Attend Phys: Rudy Fontaine DO Discharge: Date of : 43 Report #: [id number] PHYSICAL EXAMINATION: VITAL SIGNS: Blood pressure 133/77, pulse 59, respiratory rate 16 and unlabored. The patient is 97% on room air, height 6 feet 3 inches tall, weight 315 pounds, BMI calculated 39.2. GENERAL: Well-developed, well-nourished, well-hydrated, morbidly obese 72-year-old male appearing stated age, placing current pain score 5/10. HEENT: Normocephalic, atraumatic. Pupils equal, round, reactive to light. Extraocular muscles are intact. EXTREMITIES: Show no clubbing, no cyanosis. There is noted venous stasis of the lower extremities bilaterally all the way up to just below the knee. Active and passive range of motion of right knee is intensified pain. Weightbearing also intensifies pain in the right knee. There is some fluctuant fluid around the knee today. ASSESSMENT: 1. Right knee osteoarthritis. 2. Right knee effusion. 3. Right knee pain. 4. Facet arthropathy of the lumbar spine. 5. Lumbosacral spondylosis with radicular symptoms. 6. Displacement of lumbar intervertebral disk with radiculopathy. 7. Progressively worsening spinal stenosis of the lumbar spine. 8. Chronic lumbar radiculopathy. 9. Lumbar degeneration. 10. Chronic intractable pain. PLAN: 1. The patient returns today in followup visit indicating that the radiofrequency lesioning of the lumbar spine did provide good benefit. His pain in the back is now down to a level of around 3-4/10 at its worst. His knee pain is now at 5/10. He returns today requesting a right intraarticular knee injection and possible aspiration of some of the fluid around the knee itself. The patient was advised risks and benefits of a right knee injection while on concomitant Coumadin therapy. There is a risk of bleeding, significant bruising and infection. There is a possibility of not relieving symptoms, worsening pain, no relief. There is also risk of injuring the joint due to excessive bleeding secondary to anticoagulants. The patient states he understood and wished to proceed to undergo the right intra-articular knee injection and aspiration of any fluid present. 2. No medication changes were made at today's visit. The patient will continue current medical therapy as previously prescribed. 3. We will see the patient back in followup visit on an as needed basis. PROCEDURE NOTE [address] [address] PAIN MANAGEMENT CONSULTATION Name: CLARICE HAWK Room #: REG [facility] Radha#: [id number] Admission: 06/13/18 Attend Phys: Rudy Fontaine DO Discharge: Date of : 43 Report #: [id number] DESCRIPTION OF PROCEDURE: Right intraarticular knee injection under fluoroscopic guidance. After obtaining written consent, the patient was taken back to fluoroscopy suite, placed in a supine position. Image intensifier was then placed over the right knee and imaging was obtained. The area of the lateral portion of the right knee was then prepped and draped in aseptic fashion using chlorhexidine. A sterile marker was then used to glenys the skin overlying the injection site. A 27-gauge 1-1/4 inch needle was then used to anesthetize skin and subcutaneous tissue with 2 mL of 1% lidocaine. A 25-gauge 2-inch needle was then advanced under fluoroscopic guidance into the right knee joint. After entering the joint and aspiration noted to be negative for heme, we began aspiration of the fluid at that level. We received 12 mL of fluid straw colored that appear to be synovial in makeup. This was then discarded. Next, 1 mL of Omnipaque was injected demonstrating excellent right knee arthrogram. After negative aspiration for heme, 3 mL of a solution containing 1 mL 40 mg per mL, 40 mg total triamcinolone, 2 mL bupivacaine 0.5% injected slowly. Needle retracted long term, flushed with 1 mL of 1% lidocaine and then removed. Sterile bandage placed over injection site. No new motor deficits present in the lower extremity following procedure. The patient tolerated procedure well, carefully escorted to recovery room in stable condition. No apparent complication. After meeting discharge criteria, the patient discharged home. By: [id number] Rudy Fontaine, /nt
[2018-06-13 11:26] VITALS: BP 133/77
--- NOTE | 2018-06-13 11:31 | NUR ---
Pain Clinic Assessment: 1. History of Osteoarthritis: LOW BACK NECK History of Rheumatoid Arthritis: NO 2. Height: 6 ft. 3 in. 190.5 cm. Weight: 314.0 lb. oz. 142.430 kg. Patient's BMI: 39.2 3. Vital Signs: BP: 133/77 Pulse: 59 Resp: 16 Temp: 02 Sat: 97 ECG Mon: 4. Pain Intensity: 5 5. Fall Risk: Dizziness: N Needs help standing or walking: N Fallen in the last 3 months: N Fall risk comments: USES CANE 6. Patient on Blood Thinner: Warfarin (Coumadin) 7. History of Hypertension: Y 8. Opioid Therapy greater than 6 weeks: N Opiate Contract Signed: 9. Risk Assessment Tool Provided: MOD RISK 10. Functional Assessment Tool: 11. Recreational Drug Use: Never Drug Type: Tobacco Use: Former Smoker Tobacco Type: Amount or Packs/day: How Many Years: Alcohol Use: No Frequency: Quant:
== END | disposition home or self-care (01) ==
LOC: PAIN 07:04
DX: M17.11 Unilateral primary osteoarthritis, right knee (principal); M25.461 Effusion, right knee; M51.16 Intervertebral disc disorders with radiculopathy, lumbar region; M47.27 Other spondylosis with radiculopathy, lumbosacral region; M48.061 Spinal stenosis, lumbar region without neurogenic claudication; G89.29 Other chronic pain; Z79.82 Long term (current) use of aspirin; Z79.899 Other long term (current) drug therapy; Z87.891 Personal history of nicotine dependence; Z79.01 Long term (current) use of anticoagulants; Z79.4 Long term (current) use of insulin

== ENCOUNTER → 2018-08-22 | Outpatient (CLI) | payer OTHER, MEDICARE | LOC: HYPER 08-21 11:09 | DX: I89.0 Lymphedema, not elsewhere classified (principal); L30.9 Dermatitis, unspecified; E66.9 Obesity, unspecified; R60.0 Localized edema; K21.9 Gastro-esophageal reflux disease without esophagitis; M19.90 Unspecified osteoarthritis, unspecified site; Z79.82 Long term (current) use of aspirin; Z68.39 Body mass index [BMI] 39.0-39.9, adult; Z79.01 Long term (current) use of anticoagulants; Z79.4 Long term (current) use of insulin; Z86.718 Personal history of other venous thrombosis and embolism ==

== ENCOUNTER → 2018-09-12 | Outpatient (CLI) | payer OTHER, MEDICARE | LOC: HYPER 07:01 | DX: I89.0 Lymphedema, not elsewhere classified (principal); L30.9 Dermatitis, unspecified; R60.0 Localized edema; E11.9 Type 2 diabetes mellitus without complications; M19.90 Unspecified osteoarthritis, unspecified site; K21.9 Gastro-esophageal reflux disease without esophagitis; Z86.718 Personal history of other venous thrombosis and embolism; Z79.01 Long term (current) use of anticoagulants; Z79.4 Long term (current) use of insulin; Z87.891 Personal history of nicotine dependence; Z95.820 Peripheral vascular angioplasty status with implants and grafts ==

== ENCOUNTER → 2018-10-02 | Outpatient (CLI) | payer OTHER, MEDICARE ==
[~2018-10-02] VITALS: Ht 190.5 cm; Wt 141.8 kg
[2018-10-02 13:09] VITALS: BP 123/67
--- NOTE | 2018-10-02 13:29 | NUR ---
Pain Clinic Assessment: 1. History of Osteoarthritis: LOW BACK NECK History of Rheumatoid Arthritis: NO 2. Height: 6 ft. 3 in. 190.5 cm. Weight: 312.6 lb. oz. 141.795 kg. Patient's BMI: 39.1 3. Vital Signs: BP: 123/67 Pulse: 61 Resp: 16 Temp: 02 Sat: 97 ECG Mon: 4. Pain Intensity: 2 5. Fall Risk: Dizziness: N Needs help standing or walking: N Fallen in the last 3 months: N Fall risk comments: USES CANE 6. Patient on Blood Thinner: Warfarin (Coumadin) 7. History of Hypertension: Y 8. Opioid Therapy greater than 6 weeks: N Opiate Contract Signed: 9. Risk Assessment Tool Provided: MOD RISK 10. Functional Assessment Tool: 11. Recreational Drug Use: Never Drug Type: Tobacco Use: Former Smoker Tobacco Type: Amount or Packs/day: How Many Years: Alcohol Use: No Frequency: Quant:
--- NOTE | 2018-10-09 10:49 | HPC ---
[facility] [address] [place] [address] PAIN MANAGEMENT CONSULTATION Name: CLARICE HAWK Eusebio Room #: [facility] [id number] Admission: 10/02/18 ������������������ Attend Phys: Rudy Fontaine DO Discharge: ������������������ Date of : 43 Report #: [id number] THIS REPORT FOR: //name// CC: Rudy Shirley MD DATE OF SERVICE: 10/02/2018 REFERRING PHYSICIAN: Juan M Shirley MD. CHIEF COMPLAINT: Axial back pain. HISTORY OF PRESENT ILLNESS: As you know, the patient is a 72-year-old class 3, morbidly obese male who returns today in followup visit having completed radiofrequency lesioning of the medial branch nerves of the lumbar spine. He reported improvement in pain of approximately 50%, but only lasted for less than a month. He has had complete return of symptoms no more than 3 months after the procedure was completed. He returns to discuss options for treatment as he has not seen long-term efficacy with medial branch ablation. He denies new injury, new trauma or any changes in medical history since our last visit. ALLERGIES: No known drug allergies. CURRENT MEDICATIONS: Aspirin, venlafaxine, insulin, lorazepam, atenolol, Align, MiraLax, Astelin, Avodart, fluticasone, cholecalciferol, lovastatin, warfarin, omeprazole, lactobacillus, Demadex, spironolactone. SOCIAL HISTORY: The patient denies tobacco, alcohol, IV or illicit drug use. He is retired, retired years ago. He is unaccompanied today. IMAGING: No new imaging available. PQRS: The patient has known osteoarthritic changes of the bilateral knees, bilateral hips, lumbar spine. No rheumatoid arthritis. He is placing pain intensity around 2/10 today. He is not a fall risk, has not had a fall in the last 3 months, but does use a cane for balance and ambulation. He is on blood thinner in the form of Coumadin, has not discontinued its use. He is treated for hypertension. He is not on chronic opioids, but does have a moderate risk of opioid addiction. He is placing pain impact at 47/70 indicating severe interference of daily activities secondary to pain. PHYSICAL EXAMINATION: VITAL SIGNS: Blood pressure 123/67, pulse 61, respiratory rate 16 and unlabored. The patient is 97% on room air, height 6 feet 3 inches tall, weight 312.6 pounds, BMI calculated 39.1. [facility] [address] [place] [address] PAIN MANAGEMENT CONSULTATION Name: CLARICE HAWK Room #: REG [facility]#: [id number] Admission: 10/02/18 ������������������ Attend Phys: Rudy Fontaine DO Discharge: ������������������ Date of : 43 Report #: [id number] GENERAL: Well-developed, well-nourished, well-hydrated, morbidly obese 72-year-old male, appearing stated age. Pain is rated 2/10. HEENT: Normocephalic, atraumatic. Pupils equal, round, reactive to light. Speech fluent. He is a good historian. EXTREMITIES: Show no clubbing, no cyanosis. There is 1+ nonpitting lower extremity edema and venous changes noted in the lower extremities. MUSCULOSKELETAL: Seated straight leg raising negative. Supine straight leg raising positive. Citlaly's test is negative. Modified Gaenslen's positive for axial low back pain. Ankle clonus negative. Babinski is negative. Gait is antalgic. ASSESSMENT: 1. Symptomatic lumbar radiculopathy. 2. Progressively worsening spinal stenosis of the lumbar spine. 3. Facet arthropathy of the lumbar spine. 4. Lumbosacral spondylosis with radiculopathy. 5. Degeneration of lumbar spine. 6. Chronic intractable pain. PLAN: 1. The patient returns today in followup visit having indicated less than a month worth of improvement with radiofrequency lesioning of the medial branch nerves of the lumbar spine. The patient has returned to discuss options for treatment. Given the lack of long-term benefit with this type of injection, I would not recommend continuing this treatment option as he cannot undergo the procedure for at least 6 months based on the insurer's restrictions to potentially repeat the series of treatment, but given the lack of improvement, I do not feel he is going to gain much in the way of further efficacy. We will begin the process of determining if a repeat can be completed, though I have advised the patient not to expect much in the way of analgesic benefit beyond what he has already received. The patient is willing to look towards this option even with the fact that it may not provide much in the way of improvement. I would not necessarily recommend this option and I have indicated to the patient. I recommend he follow up with his surgeon who referred the patient for this treatment. 2. The patient will return to see the referring physician in regards to possible surgical options. His symptoms do have axial distribution, but his lack of improvement with the medial branch radiofrequency lesioning would indicate that another source of symptoms may be the cause of his current pain. He will need to discuss this with his referring surgeon. 3. No medication changes made at today's visit. The patient will continue current medical therapy as previously prescribed. 4. We will await the discussion he has with his spine surgeon in regards to options for treatment before addressing any further changes in treatment. He can certainly return if he wishes to undergo the radiofrequency lesioning though I would indicate to the patient I do not feel he will gain much in efficacy. We [facility] [address] [place] [address] PAIN MANAGEMENT CONSULTATION Name: CARINECLARICE Room #: [facility]ITAL[facility]ny.#: [id number] Admission: 10/02/18 ������������������ Attend Phys: Rudy Fontaine DO Discharge: ������������������ Date of : 43 Report #: [id number] will await the discussion with his surgeon before moving forward with any other options. ��������������������������������������������� <ELECTRONICALLY SIGNED> ���������������������������������������� By: Rudy Fontaine DO ��������������������������������������������� 10/09/18 [id number] Rudy Fontaine DO /nt
== END ==
LOC: PAIN 06:51
DX: M47.27 Other spondylosis with radiculopathy, lumbosacral region (principal); M51.16 Intervertebral disc disorders with radiculopathy, lumbar region; M48.061 Spinal stenosis, lumbar region without neurogenic claudication; G89.4 Chronic pain syndrome; Z79.899 Other long term (current) drug therapy

== ENCOUNTER → 2018-11-26 | Outpatient (CLI) | payer OTHER, MEDICARE | LOC: HYPER 07:35 | DX: S81.802A Unspecified open wound, left lower leg, initial encounter (principal); I89.0 Lymphedema, not elsewhere classified; L30.9 Dermatitis, unspecified; M19.90 Unspecified osteoarthritis, unspecified site; R60.0 Localized edema; Z79.01 Long term (current) use of anticoagulants; Z79.4 Long term (current) use of insulin; Z87.891 Personal history of nicotine dependence; X58.XXXA Exposure to other specified factors, initial encounter; Y93.89 Activity, other specified; Y92.89 Other specified places as the place of occurrence of the external cause; Y99.8 Other external cause status ==

== ENCOUNTER 2018-12-17 15:27 | Emergency (ER) | payer OTHER, MEDICARE ==
[~2018-12-17] VITALS: Ht 190.5 cm; Wt 139.7 kg
[2018-12-17] MEDS ORDERED: VITAMIN D2000 UNIT PO (15:47)
[2018-12-17] MEDS ORDERED: TRAMADOL 50 MG50 MG PO (16:58)
[2018-12-17] MEDS ORDERED: PREDNISONE 20 M20 MG PO (16:58)
[2018-12-17] MEDS ORDERED: NORFLEX100 MG PO (16:58)
[2018-12-17 17:05] VITALS: BP 134/61
== END 2018-12-17 17:05 | disposition home or self-care (01) ==
LOC: ER 15:27
DX: S16.1XXA Strain of muscle, fascia and tendon at neck level, initial encounter (principal); S80.212A Abrasion, left knee, initial encounter; S50.312A Abrasion of left elbow, initial encounter; E11.9 Type 2 diabetes mellitus without complications; M19.90 Unspecified osteoarthritis, unspecified site; G47.30 Sleep apnea, unspecified; Z90.49 Acquired absence of other specified parts of digestive tract; Z98.890 Other specified postprocedural states; Z86.718 Personal history of other venous thrombosis and embolism; Z87.891 Personal history of nicotine dependence; Z79.4 Long term (current) use of insulin; W18.2XXA Fall in (into) shower or empty bathtub, initial encounter; Y92.89 Other specified places as the place of occurrence of the external cause; Y93.89 Activity, other specified; Y99.8 Other external cause status